=== PATIENT | female | born 1995 | race Caucasian/White ===

== ENCOUNTER 2025-01-22 18:58 | Emergency (ER) | payer MEDICAID, OTHER ==
[~2025-01-22] VITALS: Ht 165.1 cm; Wt 66.4 kg
[2025-01-22 19:01] VITALS: TEMP 98.5
[2025-01-22 22:15] VITALS: BP 116/70; O2SAT 99
== END 2025-01-22 22:22 | disposition home or self-care (01) ==
LOC: M ED 18:58
DX: S09.90XA Unspecified injury of head, initial encounter (principal); W23.2XXA Caught, crushed, jammed or pinched between a moving and stationary object, initial encounter; Y92.009 Unspecified place in unspecified non-institutional (private) residence as the place of occurrence of the external cause; Y93.9 Activity, unspecified; Y99.9 Unspecified external cause status